=== PATIENT | female | born 1975 | race American Indian/Alaskan Native ===

== ENCOUNTER 2017-07-02 15:12 | Emergency (ER) | payer MEDICAID, OTHER ==
[2017-07-02 15:29] VITALS: BP 135/96
[2017-07-02] MEDS ORDERED: MOTRIN PO ONE (16:19)
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
== END 2017-07-02 17:33 | disposition home or self-care (01) ==
LOC: ED 15:12
DX: S39.012A Strain of muscle, fascia and tendon of lower back, initial encounter (principal); I10 Essential (primary) hypertension; F17.200 Nicotine dependence, unspecified, uncomplicated; V89.2XXA Person injured in unspecified motor-vehicle accident, traffic, initial encounter; Y92.89 Other specified places as the place of occurrence of the external cause; Y99.8 Other external cause status
CPT/HCPCS: 99282

== ENCOUNTER 2018-08-17 12:06 | Emergency (ER) | payer OTHER ==
[2018-08-17] MEDS ORDERED: IBUPROFEN PO ONE (12:49)
[2018-08-17] MEDS ORDERED: NORCO 7.5/325 PO ONE (12:49)
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
[2018-08-19 12:03] VITALS: BP 170/117
== END 2018-08-17 15:01 | disposition home or self-care (01) ==
LOC: ED 12:06
DX: S00.83XA Contusion of other part of head, initial encounter (principal); M54.2 Cervicalgia; I10 Essential (primary) hypertension; F17.200 Nicotine dependence, unspecified, uncomplicated; Y08.89XA Assault by other specified means, initial encounter; Y93.89 Activity, other specified; Y92.89 Other specified places as the place of occurrence of the external cause; Y99.8 Other external cause status
CPT/HCPCS: 70486; 72125

== ENCOUNTER 2019-02-05 17:10 | Emergency (ER) | payer BC ==
[2019-02-05 18:10] LABS: Basophils # (Auto) 0.1 K/mm3 (0.0-0.1); Basophils % (Auto) 0.7 % (0.0-1.8); Eosinophils % (Auto) 0.2 % (0.0-4.3); Hemoglobin 8.9 gm/dl (10.1-14.3); Lymphocytes # (Auto) 2.6 K/mm3 (1.2-5.4); Lymphocytes % (Auto) 30.8 % (13.4-35.0); Mean Corpuscular HGB Conc 32 % (30-34); Monocytes # (Auto) 0.7 K/mm3 (0.0-0.8); Monocytes % (Auto) 7.8 % (0.0-7.3); Platelet Count 314 K/mm3 (140-440); Red Blood Count 4.06 M/mm3 (3.65-5.03); Red Cell Distribution Width 19.3 % (13.2-15.2)
[2019-02-05 18:20] LABS: Alanine Aminotransferase 10 units/L (7-56); Albumin 4.6 g/dL (3.9-5); BUN/Creatinine Ratio 14; Blood Urea Nitrogen 10 mg/dL (7-17); Calcium 9.7 mg/dL (8.4-10.2); Hemolysis Index 0
[2019-02-05 18:28] LABS: Mean Corpuscular Volume 69 fl (79-97)
[2019-02-05 18:38] LABS: Bilirubin,Urine NEG (Negative); Color,Urine Yellow (Yellow)
[2019-02-05 18:39] LABS: Bacteria,Urine 1+ /HPF (Negative); Blood,Urine NEG (Negative); Mucus,Urine FEW /HPF; Urobilinogen,Urine < 2.0 mg/dL (<2.0)
[2019-02-05] MEDS ORDERED: MORPHINE IV ONE (20:33)
[2019-02-05] MEDS ORDERED: ZOFRAN IV ONE (20:33)
--- NOTE | 2019-02-05 20:36 | Emergency Department Report ---
ED Abdominal Pain HPI - General Chief Complaint: Abdominal Pain Stated Complaint: ABD PAIN Time Seen by Provider: 02/05/19 20:30 Source: patient Mode of arrival: Ambulatory Limitations: No Limitations - History of Present Illness Initial Comments: Patient is 43 years old female with history of hypertension, noncompliant with his medication. Patient presented to the ER complaining of abdominal pain, epigastric radiation to the suprapubic area. Patient stated that pain started 5 days ago. Patient denied any nausea or vomiting. No fever or chills. MD Complaint: abdominal pain -: days(s) Location: epigastric Radiation: suprapubic Migration to: no migration Severity: moderate Severity scale (0 -10): 6 Quality: sharp Associated Symptoms: denies other symptoms - Related Data Previous Rx's Medication Instructions Recorded Last Taken Type NIFEdipine XL [Procardia Xl] 90 mg PO QDAY #30 tablet 05/15/16 06/17/16 05:00 Rx oxyCODONE /ACETAMINOPHEN [Percocet 1 tab PO Q6HR PRN #30 tablet 06/17/16 Unknown Rx 5/325] Ibuprofen [Motrin 800 MG tab] 800 mg PO Q8HR PRN #30 tablet 07/14/16 Unknown Rx Cyclobenzaprine [Flexeril] 10 mg PO QHS PRN #5 tablet 07/02/17 Unknown Rx Ibuprofen [Motrin] 600 mg PO Q8H PRN #30 tablet 07/02/17 Unknown Rx HYDROcodone/APAP 5-325 [[place] 1 each PO Q6HR PRN #15 tablet 08/17/18 Unknown Rx 5/325] Ibuprofen [Motrin] 600 mg PO Q8H PRN #20 tablet 08/17/18 Unknown Rx Lisinopril [Zestril] 40 mg PO DAILY #30 tablet 08/17/18 Unknown Rx Allergies Allergy/AdvReac Type Severity Reaction Status Date / Time No Known Allergies Allergy Verified 07/02/17 15:24 ED Review of Systems ROS: Stated complaint: ABD PAIN Other details as noted in HPI Comment: All other systems reviewed and negative Constitutional: denies: chills, fever Respiratory: denies: cough, orthopnea, shortness of breath, SOB with exertion Cardiovascular: denies: chest pain, palpitations Gastrointestinal: abdominal pain. denies: nausea, vomiting Musculoskeletal: denies: back pain ED Past Medical Hx - Past Medical History Previous Medical History?: Yes Hx Hypertension: Yes (since 2010, took meds this morning) Hx Congestive Heart Failure: No Hx Diabetes: No Hx Deep Vein Thrombosis: No Hx Renal Disease: No Hx Sickle Cell Disease: No Hx Seizures: No Hx Asthma: No Hx COPD: No Hx HIV: No - Surgical History Past Surgical History?: Yes Additional Surgical History: Orbital fx repair, Tubaligation reversal - Social History Smoking Status: Current Every Day Smoker Substance Use Type: None - Medications Home Medications: Home Medications Medication Instructions Recorded Confirmed Last Taken Type NIFEdipine XL [Procardia Xl] 90 mg PO QDAY #30 tablet 05/15/16 06/17/16 06/17/16 05:00 Rx oxyCODONE /ACETAMINOPHEN [Percocet 1 tab PO Q6HR PRN #30 tablet 06/17/16 Unknown Rx 5/325] Ibuprofen [Motrin 800 MG tab] 800 mg PO Q8HR PRN #30 tablet 07/14/16 Unknown Rx Cyclobenzaprine [Flexeril] 10 mg PO QHS PRN #5 tablet 07/02/17 Unknown Rx Ibuprofen [Motrin] 600 mg PO Q8H PRN #30 tablet 07/02/17 Unknown Rx HYDROcodone/APAP 5-325 [[place] 1 each PO Q6HR PRN #15 tablet 08/17/18 Unknown Rx 5/325] Ibuprofen [Motrin] 600 mg PO Q8H PRN #20 tablet 08/17/18 Unknown Rx Lisinopril [Zestril] 40 mg PO DAILY #30 tablet 08/17/18 Unknown Rx ED Physical Exam - General Limitations: No Limitations General appearance: alert, in no apparent distress - Head Head exam: Present: atraumatic, normocephalic, normal inspection - Eye Eye exam: Present: normal appearance, PERRL - ENT ENT exam: Present: normal exam, normal orophraynx, mucous membranes moist - Neck Neck exam: Present: normal inspection. Absent: tenderness, meningismus - Respiratory Respiratory exam: Present: normal lung sounds bilaterally - Cardiovascular Cardiovascular Exam: Present: regular rate, normal rhythm, normal heart sounds - GI/Abdominal GI/Abdominal exam: Present: soft, normal bowel sounds. Absent: distended, tenderness, guarding, rebound, rigid, mass, bruit, pulsatile mass, hernia - Extremities Exam Extremities exam: Present: normal inspection, full ROM, normal capillary refill - Back Exam Back exam: Present: normal inspection, full ROM. Absent: CVA tenderness (R), CVA tenderness (L), muscle spasm, paraspinal tenderness, vertebral tenderness - Neurological Exam Neurological exam: Present: alert, oriented X3, CN II-XII intact, normal gait - Skin Skin exam: Present: warm, intact, normal color ED Course Vital Signs 02/05/19 02/05/19 02/05/19 17:26 20:19 20:29 Temperature 97.9 F Pulse Rate 83 Respiratory 18 19 Rate Blood Pressure 169/106 O2 Sat by Pulse 98 100 Oximetry 02/05/19 02/05/19 02/05/19 20:30 20:45 21:00 Temperature Pulse Rate Respiratory Rate Blood Pressure 190/108 190/108 194/117 O2 Sat by Pulse 100 100 100 Oximetry 02/05/19 02/05/19 02/05/19 21:15 21:30 21:53 Temperature Pulse Rate Respiratory Rate Blood Pressure 194/117 197/114 O2 Sat by Pulse 100 100 65 L Oximetry 02/05/19 02/05/19 02/05/19 22:00 22:16 22:44 Temperature Pulse Rate Respiratory Rate Blood Pressure 207/120 207/120 207/120 O2 Sat by Pulse 100 100 75 L Oximetry 02/05/19 22:45 Temperature Pulse Rate Respiratory Rate Blood Pressure 207/120 O2 Sat by Pulse 99 Oximetry ED Medical Decision Making - Lab Data Result diagrams: 02/05/19 17:39 02/05/19 17:39 - Radiology Data Radiology results: report reviewed - Medical Decision Making Patient is 43 years old female with history of hypertension, noncompliant with his medication. Patient presented to the ER complaining of abdominal pain, epigastric radiation to the suprapubic area. Patient stated that pain started 5 days ago. Patient denied any nausea or vomiting. No fever or chills. CT abdomen and pelvis showed a acute pancreatitis. Patient stated that she has been drinking quite bit in the last few days. Patient stated that symptoms improved significantly. She stated that she is not taking any medicine for blood pressure. Patient given clonidine here in the ER. Advised patient to advance diet as tolerated. Patient also advised to return to the ER if symptoms are not improved. Critical care attestation.: If time is entered above; I have spent that time in minutes in the direct care o f this critically ill patient, excluding procedure time. ED Disposition Clinical Impression: Acute pancreatitis, Abdominal pain, Malignant hypertension Disposition: - TO HOME OR SELFCARE Is pt being admited?: No Condition: Stable Instructions: Abdominal Pain (ED), Hypertension (ED), Pancreatitis (ED) Referrals: EFRAIN SAEZ MD [Primary Care Provider] - 3-5 Days
--- NOTE | 2019-02-05 22:51 | Cat Scan Report ---
CT ABDOMEN AND PELVIS WITH CONTRAST HISTORY: Right abdominal pain. COMPARISON: No relevant prior imaging study available. TECHNIQUE: Axial, coronal and sagittal CT imaging of the abdomen and pelvis was performed after inje ction of 100 cc Omnipaque [address] scans at this location are performed using CT dose re duction for ALARA by means of automated exposure control. FINDINGS: LOWER CHEST: No significant abnormality. LIVER: There is a tiny probable cyst located anteriorly along the right hepatic lobe. No additional s ignificant abnormality. BILIARY: No significant abnormality. PANCREAS: The pancreatic head and uncinate process are mildly edematous with surrounding fluid/inflam mation. No additional significant abnormality. SPLEEN: No significant abnormality. ADRENALS: No significant abnormality. KIDNEYS AND URETERS: No significant abnormality. GI TRACT: No significant abnormality of the stomach. There is mild dilatation of the second/third por tion of the duodenum, which may be reactive to the surrounding inflammatory changes noted along the p ancreas. The remainder of the small bowel is unremarkable. No significant abnormality of the colon is seen. Unremarkable appendix. PERITONEUM: No free fluid. No free air. No fluid collection. LYMPH NODES: No significant adenopathy. VASCULATURE: No significant abnormality. URINARY BLADDER: No significant abnormality. REPRODUCTIVE ORGANS: There is a 2 cm follicle in the right ovary. No additional significant abnormali ty is noted. ADDITIONAL FINDINGS: None. SKELETAL SYSTEM: No significant abnormality. IMPRESSION: Probable acute pancreatitis without an associated complication. Please correlate with the clinical fi ndings. Signer Name: Jt Mcdermott MD Signed: 02/05/2019 10:47 PM Workstation Name: [id number]
[2019-02-05] MEDS ORDERED: SUBLIMAZE IV ONE (22:52)
[2019-02-05] MEDS ORDERED: SUBLIMAZE ONE (22:58)
[2019-02-06] MEDS ORDERED: CATAPRES PO ONE (00:06)
[2019-02-06 00:31] VITALS: BP 191/116
== END 2019-02-06 01:33 | disposition home or self-care (01) ==
LOC: ED 17:10
DX: K85.90 Acute pancreatitis without necrosis or infection, unspecified (principal); I10 Essential (primary) hypertension; F17.200 Nicotine dependence, unspecified, uncomplicated; Z98.890 Other specified postprocedural states; Z98.51 Tubal ligation status; Z79.899 Other long term (current) drug therapy
CPT/HCPCS: 36415; 74177; 80053; 81001; 83690; 85025; 96374; 96375; 99284; J2270; J2405; J3010; Q9967

== ENCOUNTER 2019-06-23 18:26 | Emergency (ER) | payer BC ==
--- NOTE | 2019-06-23 19:12 | Emergency Department Report ---
Blank Doc - Documentation Documentation: 43-year-old female that presents with RUQ with n/v. This initial assessment/diagnostic orders/clinical plan/treatment(s) is/are subject to change based on patient's health status, clinical progression and re- assessment by fellow clinical providers in the ED. Further treatment and workup at subsequent clinical providers discretion. Patient/guardians urged not to elope from the ED as their condition may be serious if not clinically assessed and managed. Initial orders include: 1- Patient sent to [facility] for further evaluation and treatment 2- labs 3- UA
[2019-06-23 19:44] LABS: Basophils # (Auto) 0.1 K/mm3 (0.0-0.1); Eosinophils # (Auto) 0.1 K/mm3 (0.0-0.4); Eosinophils % (Auto) 1.3 % (0.0-4.3); Hematocrit 30.8 % (30.3-42.9); Hemoglobin 9.6 gm/dl (10.1-14.3); Lymphocytes # (Auto) 1.8 K/mm3 (1.2-5.4); Lymphocytes % (Auto) 34.3 % (13.4-35.0); Mean Corpuscular HGB Conc 31 % (30-34); Mean Corpuscular Volume 70 fl (79-97); Monocytes # (Auto) 0.4 K/mm3 (0.0-0.8); Monocytes % (Auto) 8.3 % (0.0-7.3); Platelet Count 422 K/mm3 (140-440); Red Blood Count 4.39 M/mm3 (3.65-5.03); Red Cell Distribution Width 18.8 % (13.2-15.2)
[2019-06-23 19:57] LABS: Alanine Aminotransferase 10 units/L (7-56); Albumin 4.5 g/dL (3.9-5); BUN/Creatinine Ratio 19; Blood Urea Nitrogen 13 mg/dL (7-17); Calcium 9.9 mg/dL (8.4-10.2); Hemolysis Index 8
[2019-06-23 20:09] LABS: Bilirubin,Urine NEG (Negative); Blood,Urine NEG (Negative); Color,Urine Yellow (Yellow); Mucus,Urine 1+ /HPF; Protein,Urine <15 mg/dL mg/dL (Negative); Urobilinogen,Urine < 2.0 mg/dL (<2.0)
[2019-06-23] MEDS ORDERED: SODIUM CHLORIDE 0.9% 1000 ML 1,000 ML IV ONE (20:43)
[2019-06-23] MEDS ORDERED: ONDANSETRON 4 MG/2 ML INJ IV ONE (20:43)
[2019-06-23] MEDS ORDERED: KETOROLAC 30 MG/1 ML INJ IV ONE (20:43)
--- NOTE | 2019-06-23 21:08 | Emergency Department Report ---
ED Abdominal Pain HPI - General Chief Complaint: Abdominal Pain Stated Complaint: ABD PAIN Time Seen by Provider: 06/23/19 19:11 Source: patient Mode of arrival: Ambulatory Limitations: No Limitations - History of Present Illness Initial Comments: pt is a 43 y/o aaf who presents for RUQ pain 5/10 x 1 week , pain is described 5/10 aching , constant, with intermittent nausea and vomiting. pt denies fever or chills. There is no constipation or diarrhea. MD Complaint: abdominal pain Onset/Timin -: week(s) Location: RUQ Radiation: RUQ Migration to: RUQ Severity: moderate Severity scale (0 -10): 5 Quality: aching Consistency: constant Improves With: nothing Worsens With: eating Associated Symptoms: nausea, vomiting Treatments Prior to Arrival: other (none ) - Related Data LMP (females 10-50): last week Previous Rx's Medication Instructions Recorded Last Taken Type NIFEdipine XL [Procardia Xl] 90 mg PO QDAY #30 tablet 05/15/16 06/17/16 05:00 Rx oxyCODONE /ACETAMINOPHEN [Percocet 1 tab PO Q6HR PRN #30 tablet 06/17/16 Unknown Rx 5/325] Ibuprofen [Motrin 800 MG tab] 800 mg PO Q8HR PRN #30 tablet 07/14/16 Unknown Rx Cyclobenzaprine [Flexeril] 10 mg PO QHS PRN #5 tablet 07/02/17 Unknown Rx Ibuprofen [Motrin] 600 mg PO Q8H PRN #30 tablet 07/02/17 Unknown Rx HYDROcodone/APAP 5-325 [[place] 1 each PO Q6HR PRN #15 tablet 08/17/18 Unknown Rx 5/325] Ibuprofen [Motrin] 600 mg PO Q8H PRN #20 tablet 08/17/18 Unknown Rx Lisinopril [Zestril] 40 mg PO DAILY #30 tablet 08/17/18 Unknown Rx Ondansetron [Zofran Odt] 4 mg PO Q8HR PRN #14 tab.rapdis 02/06/19 Unknown Rx amLODIPine [Norvasc] 5 mg PO DAILY #30 tab 02/06/19 Unknown Rx traMADoL [Ultram] 50 mg PO Q6HR PRN #14 tablet 02/06/19 Unknown Rx Dicyclomine [Bentyl] 10 mg PO QID PRN #30 capsule 06/23/19 Unknown Rx Naproxen 500 mg PO BID PRN #30 tablet 06/23/19 Unknown Rx Ondansetron [Zofran Odt] 4 mg PO Q8HR PRN 3 Days #12 06/23/19 Unknown Rx tab.rapdis Allergies Allergy/AdvReac Type Severity Reaction Status Date / Time No Known Allergies Allergy Verified 07/02/17 15:24 ED Review of Systems ROS: Stated complaint: ABD PAIN Other details as noted in HPI Constitutional: denies: chills, fever Eyes: denies: eye pain, eye discharge, vision change ENT: denies: ear pain, throat pain Respiratory: denies: cough, shortness of breath, wheezing Cardiovascular: denies: chest pain, palpitations Endocrine: no symptoms reported Gastrointestinal: abdominal pain, nausea, vomiting. denies: diarrhea, constipation, melena Genitourinary: denies: urgency, dysuria, discharge Musculoskeletal: denies: back pain, joint swelling, arthralgia Skin: as per HPI Neurological: denies: headache, weakness, paresthesias Psychiatric: denies: anxiety, depression Hematological/Lymphatic: denies: easy bleeding, easy bruising ED Past Medical Hx - Past Medical History Previous Medical History?: Yes Hx Hypertension: Yes (since 2010, took meds this morning) Hx Congestive Heart Failure: No Hx Diabetes: No Hx Deep Vein Thrombosis: No Hx Renal Disease: No Hx Sickle Cell Disease: No Hx Seizures: No Hx Asthma: No Hx COPD: No Hx HIV: No - Surgical History Past Surgical History?: Yes Additional Surgical History: Orbital fx repair, Tubaligation reversal - Social History Smoking Status: Current Every Day Smoker Substance Use Type: Alcohol - Medications Home Medications: Home Medications Medication Instructions Recorded Confirmed Last Taken Type NIFEdipine XL [Procardia Xl] 90 mg PO QDAY #30 tablet 05/15/16 06/17/16 06/17/16 05:00 Rx oxyCODONE /ACETAMINOPHEN [Percocet 1 tab PO Q6HR PRN #30 tablet 06/17/16 Unknown Rx 5/325] Ibuprofen [Motrin 800 MG tab] 800 mg PO Q8HR PRN #30 tablet 07/14/16 Unknown Rx Cyclobenzaprine [Flexeril] 10 mg PO QHS PRN #5 tablet 07/02/17 Unknown Rx Ibuprofen [Motrin] 600 mg PO Q8H PRN #30 tablet 07/02/17 Unknown Rx HYDROcodone/APAP 5-325 [[place] 1 each PO Q6HR PRN #15 tablet 08/17/18 Unknown Rx 5/325] Ibuprofen [Motrin] 600 mg PO Q8H PRN #20 tablet 08/17/18 Unknown Rx Lisinopril [Zestril] 40 mg PO DAILY #30 tablet 08/17/18 Unknown Rx Ondansetron [Zofran Odt] 4 mg PO Q8HR PRN #14 tab.rapdis 02/06/19 Unknown Rx amLODIPine [Norvasc] 5 mg PO DAILY #30 tab 02/06/19 Unknown Rx traMADoL [Ultram] 50 mg PO Q6HR PRN #14 tablet 02/06/19 Unknown Rx Dicyclomine [Bentyl] 10 mg PO QID PRN #30 capsule 06/23/19 Unknown Rx Naproxen 500 mg PO BID PRN #30 tablet 06/23/19 Unknown Rx Ondansetron [Zofran Odt] 4 mg PO Q8HR PRN 3 Days #12 06/23/19 Unknown Rx tab.rapdis ED Physical Exam - General Limitations: No Limitations (fffffffffffffffffffffffffffffffffffffffffffffffffffffffffffffffffffffffffffffff fffffffffffffffffffffffffffffffffffffffffffff) General appearance: alert, in no apparent distress - Head Head exam: Present: atraumatic, normocephalic - Eye Eye exam: Present: normal appearance, EOMI Pupils: Present: normal accommodation - ENT ENT exam: Present: normal orophraynx, mucous membranes moist - Neck Neck exam: Present: normal inspection, full ROM. Absent: tenderness, lymphadenopathy - Respiratory Respiratory exam: Present: normal lung sounds bilaterally. Absent: respiratory distress, wheezes, chest wall tenderness - Cardiovascular Cardiovascular Exam: Present: regular rate, normal rhythm, normal heart sounds. Absent: systolic murmur, diastolic murmur, rubs, gallop - GI/Abdominal GI/Abdominal exam: Present: soft, tenderness (ruq and epigastric), normal bowel sounds. Absent: distended, guarding, rebound, rigid, bruit, hernia - Rectal Rectal exam: Present: deferred - Extremities Exam Extremities exam: Present: normal inspection, full ROM, normal capillary refill. Absent: tenderness - Back Exam Back exam: Present: normal inspection, full ROM, tenderness. Absent: CVA tenderness (R), CVA tenderness (L), rash noted - Neurological Exam Neurological exam: Present: alert, oriented X3, CN II-XII intact, normal gait, reflexes normal. Absent: motor sensory deficit - Psychiatric Psychiatric exam: Present: normal affect, normal mood - Skin Skin exam: Present: warm, dry, intact, normal color. Absent: rash ED Course Vital Signs 06/23/19 06/23/19 06/23/19 18:28 21:24 21:47 Temperature 98.3 F 97.6 F Pulse Rate 104 H 78 Respiratory 18 18 16 Rate Blood Pressure 165/111 Blood Pressure 195/120 [Right] O2 Sat by Pulse 98 100 Oximetry 06/23/19 22:14 Temperature Pulse Rate 88 Respiratory Rate Blood Pressure 117/84 Blood Pressure [Right] O2 Sat by Pulse Oximetry ED Medical Decision Making - Lab Data Result diagrams: 06/23/19 19:17 06/23/19 19:17 Labs 06/23/19 06/23/19 06/23/19 19:17 19:17 19:17 WBC 5.1 RBC 4.39 Hgb 9.6 L Hct 30.8 MCV 70 L MCH 22 L MCHC 31 RDW 18.8 H Plt Count 422 Lymph % (Auto) 34.3 [place] % (Auto) 8.3 H Eos % (Auto) 1.3 Baso % (Auto) 2.0 H Lymph # 1.8 [place] # 0.4 Eos # 0.1 Baso # 0.1 Seg Neutrophils % 54.1 Seg Neutrophils # 2.8 Sodium 140 Potassium 4.1 Chloride 102.6 Carbon Dioxide 26 Anion Gap 16 BUN 13 Creatinine 0.7 Estimated GFR > 60 BUN/Creatinine Ratio 19 Glucose 86 Calcium 9.9 Total Bilirubin 0.30 AST 22 ALT 10 Alkaline Phosphatase 55 Total Protein 8.4 H Albumin 4.5 Albumin/Globulin Ratio 1.2 Lipase 85 H HCG, Qual Negative Urine Color Urine Turbidity Urine pH Ur Specific [place] Urine Protein Urine Glucose (UA) Urine Ketones Urine Blood Urine Nitrite Urine Bilirubin Urine Urobilinogen Ur Leukocyte Esterase Urine WBC (Auto) Urine RBC (Auto) U Epithel Cells (Auto) Urine Mucus 06/23/19 19:45 WBC RBC Hgb Hct MCV MCH MCHC RDW Plt Count Lymph % (Auto) [place] % (Auto) Eos % (Auto) Baso % (Auto) Lymph # [place] # Eos # Baso # Seg Neutrophils % Seg Neutrophils # Sodium Potassium Chloride Carbon Dioxide Anion Gap BUN Creatinine Estimated GFR BUN/Creatinine Ratio Glucose Calcium Total Bilirubin AST ALT Alkaline Phosphatase Total Protein Albumin Albumin/Globulin Ratio Lipase HCG, Qual Urine Color Yellow Urine Turbidity Clear Urine pH 5.0 Ur Specific [place] 1.026 Urine Protein <15 mg/dl Urine Glucose (UA) Neg Urine Ketones Neg Urine Blood Neg Urine Nitrite Neg Urine Bilirubin Neg Urine Urobilinogen < 2.0 Ur Leukocyte Esterase Neg Urine WBC (Auto) 4.0 Urine RBC (Auto) 2.0 U Epithel Cells (Auto) 1.0 Urine Mucus 1+ - Radiology Data Radiology results: report reviewed, image reviewed Ordering Physician: JOSELYN ALFRED NP Date of Service: 06/23/19 Procedure(s): CT abdomen pelvis w con Accession Number(s): [id number] cc: JOSELYN ALFRED NP CT ABDOMEN AND PELVIS WITH CONTRAST INDICATION / CLINICAL INFORMATION: abd pain RUQ, LUQ. TECHNIQUE: Axial CT images were obtained through the abdomen and pelvis after 100 mL Omnipaque [address] scans at this location are performed using CT dose reduction for ALARA by means of automated exposure control. COMPARISON: CT scan 02/05/2019 FINDINGS: LOWER CHEST: No significant abnormality. LIVER: No significant abnormality. BILIARY SYSTEM: No significant abnormality. PANCREAS: No significant abnormality. SPLEEN: No significant abnormality. ADRENALS: No significant abnormality. KIDNEYS and URETERS: No significant abnormality. STOMACH / BOWEL: No significant abnormality. PERITONEUM: No free fluid. No free air. No fluid collection. LYMPH NODES: No adenopathy. VASCULAR STRUCTURES: No significant abnormality. URINARY BLADDER: No significant abnormality. REPRODUCTIVE ORGANS: No significant abnormality. Metallic clips in the pelvis are suggestive of previous tubal ligation. ADDITIONAL FINDINGS: None. SKELETAL SYSTEM: No significant abnormality. IMPRESSION: 1. No acute abnormality. Signer Name: Candido Aponte MD Signed: 06/23/2019 9:45 PM Workstation Name: [id number] Transcribed By: FREDO Dictated By: Candido Aponte MD Electronically Authenticated By: Candido Aponte MD Signed Date/Time: 06/23/192144 DD/ 34 TD/TT: - Medical Decision Making ct abd and pelvis : normal no mass bleeding or abnormality, labs normal, pain relieved to 07/26 plan dc to home with rx for naproxen, zofran, bentyl. pt will follow up with pcp in 2-3 days. Critical care attestation.: If time is entered above; I have spent that time in minutes in the direct care of this critically ill patient, excluding procedure time. ED Disposition Clinical Impression: Abdominal pain Qualifiers: Abdominal location: right upper quadrant Qualified Code(s): R10.11 - Right upper quadrant pain Disposition: DC-01 TO HOME OR SELFCARE Is pt being admited?: No Does the pt Need Aspirin: No Condition: Stable Instructions: Chronic Hypertension (ED), Abdominal Pain (ED) Prescriptions: Dicyclomine [Bentyl] 10 mg PO QID PRN #30 capsule PRN Reason: abdominal spasm Naproxen 500 mg PO BID PRN #30 tablet PRN Reason: pain Ondansetron [Zofran Odt] 4 mg PO Q8HR PRN 3 Days #12 tab.rapdis PRN Reason: nausea and vomiting Referrals: PRIMARY CAREMD [Primary Care Provider] - 3-5 Days [facility] [Provider Group] - 3-5 Days Forms: Work/School Release Form(ED) Time of Disposition: 00:04
[2019-06-23] MEDS ORDERED: amLODIPine 5 MG TAB PO ONE (21:45)
--- NOTE | 2019-06-23 21:49 | Cat Scan Report ---
CT ABDOMEN AND PELVIS WITH CONTRAST INDICATION / CLINICAL INFORMATION: abd pain RUQ, LUQ. TECHNIQUE: Axial CT images were obtained through the abdomen and pelvis after 100 mL Omnipaque [address] scans at this location are performed using CT dose reduction for ALARA by means of automated exposure control. COMPARISON: CT scan 02/05/2019 FINDINGS: LOWER CHEST: No significant abnormality. LIVER: No significant abnormality. BILIARY SYSTEM: No significant abnormality. PANCREAS: No significant abnormality. SPLEEN: No significant abnormality. ADRENALS: No significant abnormality. KIDNEYS and URETERS: No significant abnormality. STOMACH / BOWEL: No significant abnormality. PERITONEUM: No free fluid. No free air. No fluid collection. LYMPH NODES: No adenopathy. VASCULAR STRUCTURES: No significant abnormality. URINARY BLADDER: No significant abnormality. REPRODUCTIVE ORGANS: No significant abnormality. Metallic clips in the pelvis are suggestive of previ ous tubal ligation. ADDITIONAL FINDINGS: None. SKELETAL SYSTEM: No significant abnormality. IMPRESSION: 1. No acute abnormality. Signer Name: Candido Aponte MD Signed: 06/23/2019 9:45 PM Workstation Name: [id number]
[2019-06-24 02:09] VITALS: BP 146/99
== END 2019-06-24 02:00 | disposition home or self-care (01) ==
LOC: ED 18:26
DX: R10.11 Right upper quadrant pain (principal); R11.2 Nausea with vomiting, unspecified; I10 Essential (primary) hypertension; F17.200 Nicotine dependence, unspecified, uncomplicated; Z98.890 Other specified postprocedural states; Z79.899 Other long term (current) drug therapy
CPT/HCPCS: 36415; 74177; 80053; 81001; 83690; 84703; 85025; 96361; 96374; 96375; 99284; J1885; J2405; J7030; Q9967

== ENCOUNTER 2020-10-25 04:20 | Inpatient (IN) | payer BC, OTHER ==
[2020-10-25] MEDS ORDERED: ASPIRIN 325 MG TAB PO ONE (05:33)
[2020-10-25 06:22] LABS: Hemoglobin 7.5 gm/dl (10.1-14.3); Mean Corpuscular HGB Conc 30 % (30-34); Platelet Count 271 K/mm3 (140-440); Red Blood Count 3.93 M/mm3 (3.65-5.03); Red Cell Distribution Width 19.7 % (13.2-15.2)
[2020-10-25 06:24] LABS: Mean Corpuscular Volume 63 fl (79-97)
[2020-10-25 06:39] LABS: Alanine Aminotransferase 11 units/L (7-56); Albumin 4.5 g/dL (3.9-5); BUN/Creatinine Ratio 17; Blood Urea Nitrogen 17 mg/dL (7-17); Calcium 9.6 mg/dL (8.4-10.2); Hemolysis Index 0
[2020-10-25] MEDS ORDERED: ONDANSETRON 4 MG/2 ML INJ IV ONE (06:52)
[2020-10-25] MEDS ORDERED: MORPHINE 2 MG/1 ML INJ IV ONE ×2 (06:52→09:40)
[2020-10-25 07:16] LABS: Anisocytosis 1+; Hypochromasia 2+; Total Cells Counted 100
[2020-10-25 07:17] LABS: Platelet Estimate Consistent w Auto
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
[2020-10-25 07:28] LABS: INR 0.96 (0.87-1.13); Partial Thromboplastin Time 26.5 Sec. (24.2-36.6)
[2020-10-25 07:34] LABS: Creatine Kinase MB 6.4 ng/mL (0.0-4.0)
--- NOTE | 2020-10-25 07:59 | XRay Report ---
CHEST PA AND LATERAL VIEWS INDICATION: chest, neck and back pain. COMPARISON: None. FINDINGS: Support devices: None. Heart: Within normal limits. Lungs/Pleura: No acute pulmonary or pleural findings. IMPRESSION: 1. No acute findings. Signer Name: Neto Phillips MD Signed: 10/25/2020 7:55 AM Workstation Name: [email or web address]
--- NOTE | 2020-10-25 08:08 | Cat Scan Report ---
CTA CHEST WITH IV CONTRAST INDICATION: CP CONTRAST: Unspecified dosage Omnipaque 300 IV COMPARISON: CT abdomen and pelvis 06/23/2019, chest x-ray tonight Three-plane MIP reconstructions were produced. All CT scans at this location are performed using CT d ose reduction for ALARA by means of automated exposure control. FINDINGS: No significant chest wall or axillary lesions are seen. The left lower thyroid shows a mixe d density 2 cm nodule. No mediastinal or hilar masses are seen. Visualized portions of the upper abdo men show mild fatty infiltration of the liver. No pleural effusions are seen. No obvious endobronchia l lesions are noted. No pneumothorax or pneumomediastinum are seen. Lung henry are clear of nodules, masses, or infiltrates. The aorta shows no aneurysmal dilatation or evidence of dissection. Adequate opacification of the pulmonary arterial system was achieved. I do not see evidence of pulmon divya thromboembolism. IMPRESSION: 1. No acute abnormalities are seen. No evidence of pulmonary thromboembolism. 2. Left thyroid lesion. Recommend follow-up with clinical correlation and ultrasound if this is not a known process. INCIDENTAL THYROID NODULE RECOMMENDATIONS Nonpalpable nodules detected on US or other anatomic imaging studies are termed incidentally discover ed nodules or incidentalomas. Nonpalpable nodules have the same risk of malignancy as palpable nodule s with the same size. Generally, only nodules >1 cm should be evaluated, since they have a greater po tential to be clinically significant cancers. (BONNIE, 2009). Follow up for incidental thyroid nodules <1 cm is not recommended. In patients <35 years with an incidental thyroid nodule detected on CT, MRI, or extrathyroidal ultras ound, dedicated thyroid ultrasound is recommended if the nodule is 1 cm, has no suspicious imaging fe atures, and if the patient has normal life expectancy. In patients 35 years with an incidental thyroid nodule detected on CT, MRI, or extrathyroidal ultraso und, dedicated thyroid ultrasound is recommended if the nodule is 1.5 cm, has no suspicious imaging f eatures, and if the patient has normal life expectancy. Signer Name: Juan Wilkerson MD Signed: 10/25/2020 8:04 AM Workstation Name: [email or web address]
--- NOTE | 2020-10-25 08:15 | Cat Scan Report ---
CT CERVICAL SPINE WITHOUT CONTRAST INDICATION: Neck pain TECHNIQUE: All CT scans at this location are performed using CT dose reduction for ALARA by means of automated exposure control. Axial CT images were obtained through the cervical spine. Sagittal and co berna reformatted images were produced. COMPARISON: None available. Cervical spine findings: Extensive degenerative changes are seen. Disc space narrowing is moderately prominent at C5-6 and C6-7 with mild narrowing at C3-4 and C4-5. Small posterior osteophytes are seen at C5-6 and C6-7 and multiple anterior osteophytes are noted. Mild retrolisthesis at C5-6 probably r elates to the degenerative process. No obvious disc herniation is seen. No fractures are noted. Additional findings: The approximate 2 cm mixed density lesion in the left lobe of the thyroid is not ed as discussed on CTA chest report. IMPRESSION: No significant acute findings. Signer Name: Juan Wilkerson MD Signed: 10/25/2020 8:10 AM Workstation Name: [id number]
[2020-10-25 09:07] LABS: Bacteria,Urine 1+ /HPF (Negative); Bilirubin,Urine NEG (Negative); Blood,Urine SM (Negative); Color,Urine Straw (Yellow); Mucus,Urine FEW /HPF; Protein,Urine <15 mg/dL mg/dL (Negative); Urobilinogen,Urine < 2.0 mg/dL (<2.0)
[2020-10-25 09:40] LABS: Benzodiazepines Screen,Urine Negative; Cannabinoid Screen,Urine Negative; Methadone Screen,Urine Negative; Opiate Screen,Urine Negative
[2020-10-25] MEDS ORDERED: MORPHINE 2 MG/1 ML INJ ONE (09:40)
[2020-10-25 09:53] LABS: Amphetamine Screen,Urine Positive; Cocaine Screen,Urine Positive
[2020-10-25] MEDS ORDERED: SODIUM CHLORIDE 0.9% 1000 ML 1,000 ML IV ONE (10:27)
[2020-10-25] MEDS ORDERED: ONDANSETRON 4 MG/2 ML INJ IV PRN (11:36)
[2020-10-25] MEDS ORDERED: NALOXONE 0.4 MG/1 ML INJ IV PRN (11:36)
[2020-10-25] MEDS ORDERED: MORPHINE 2 MG/1 ML INJ IV PRN (11:36)
[2020-10-25] MEDS ORDERED: ACETAMINOPHEN 325 MG TAB PO PRN (11:36)
[2020-10-25] MEDS ORDERED: HYDROmorphone 1 MG/1 ML INJ IV PRN (11:36)
[2020-10-25] MEDS ORDERED: CYCLOBENZAPRINE 10 MG TAB PO ONE (11:48)
[2020-10-25] MEDS ORDERED: LIDOCAINE 5% 1 EACH PATCH TD SCH (12:00)
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
[2020-10-25] MEDS ORDERED: hydrALAZINE 20 MG/1 ML INJ IV ONE (13:18)
[2020-10-25 13:49] LABS: HCG Qualitative,Urine Negative (Negative)
[2020-10-25] MEDS: SODIUM CHLORIDE 0.9% 1000 ML 1,000 ML IV SCH (19:00)
[2020-10-25] MEDS: oxyCODONE /ACETAMINOPHEN 5-325MG TAB PO PRN (20:56)
[2020-10-25] MEDS: CYCLOBENZAPRINE 10 MG TAB PO SCH (22:09)
[2020-10-26 05:17] LABS: BUN/Creatinine Ratio 13; Blood Urea Nitrogen 10 mg/dL (7-17); Calcium 8.4 mg/dL (8.4-10.2); Hemolysis Index 0; Iron 19 ug/dL (37-170); Total Iron Binding Capacity 458 mcg/dL (250-450)
[2020-10-26] MEDS: SODIUM CHLORIDE 0.9% 1000 ML 1,000 ML IV SCH ×2 (05:44→22:09)
[2020-10-26 08:28] LABS: Hematocrit 22.1 % (30.3-42.9); Hemoglobin 6.8 gm/dl (10.1-14.3); Mean Corpuscular HGB Conc 31 % (30-34); Platelet Count 205 K/mm3 (140-440); Red Blood Count 3.52 M/mm3 (3.65-5.03); Red Cell Distribution Width 19.6 % (13.2-15.2)
[2020-10-26 08:29] LABS: Mean Corpuscular Volume 63 fl (79-97)
[2020-10-26] MEDS: LISINOPRIL 40 MG TAB PO SCH (11:50)
[2020-10-26] MEDS: oxyCODONE /ACETAMINOPHEN 5-325MG TAB PO PRN ×2 (13:05→22:07)
--- NOTE | 2020-10-26 15:30 | Progress Note ---
Assessment and Plan Assessment and plan: 45-year-old -[place] female who presents with acute neck pain in the context of rhabdomyolysis Acute neck pain Acute rhabdomyolysis CT of neck reviewed, no disc herniation noted CK elevated, continue fluids, follow CK Pain medication, morphine Dilaudid, Flexeril Consider lidocaine patch if pain continues Physical therapy consulted Polysubstance abuse Urinalysis reviewed, positive for amphetamines and cocaine Stressed abstinence Hypertension Continue lisinopril IV hydralazine as needed with parameters Microcytic anemia Iron studies pending No signs of bleeding Transfuse if hemoglobin <7.0 CODE STATUS: Full DVT prophylaxis: SCDs, hold heparin Disposition: Continue treatment for mild rhabdo and intractable neck pain, hopefully patient can be discharged within the next 48 hours. History Interval history: 10/26 patient seen and examined, states that her neck pain has decreased somewhat with the pain medication. Tolerating fluids, patient needs to get out of bed and ambulate and move around instead of laying in the bed. Hospitalist Physical - Physical exam Narrative exam: General appearance no acute distress, well-nourished EENT: PERRL, EOM intact, hearing intact, clear oral mucosa, dentition normal Neck: Range of motion, tenderness in right trapezius Respiratory: bilateral: CTA, negative: rales, rhonchi, wheezing Cardiovascular: Regular rate/rhythm, Normal S1 & S2. No gallop, rub Extremities: no ischemia, No edema, normal temperature, normal color, Full ROM Abdominal: soft, non-tender, non-distended, normal bowel sounds Integumentary: Present: clear, warm, dry Psychiatric: appropriate mood/affect, intact judgment & insight Neurologic: CNII-XII intact, moves all extremities - Constitutional Vitals: Temp Pulse Resp BP Pulse Ox 98.2 F 74 18 134/82 100 10/26/20 11:46 10/26/20 11:46 10/26/20 11:46 10/26/20 11:50 10/26/20 11:46 General appearance: Present: no acute distress, well-nourished HEART Score - HEART Score EKG: Non-specific Age: 45-65 Risk factors: No known risk factors Troponin: Troponin T < 0.010 ng/mL (0.00-0.029) 10/25/20 07:07 Troponin: < normal limit - Critical Actions Critical Actions: 0-3 pts:0.9-1.7%risk of adverse cardiac event.Candidate for discharge Results - Labs CBC & Chem 7: 10/26/20 08:03 10/26/20 04:23 Labs: Laboratory Last Values WBC 5.0 K/mm3 (4.5-11.0) 10/26/20 08:03 RBC 3.52 M/mm3 (3.65-5.03) L 10/26/20 08:03 Hgb 6.8 gm/dl (10.1-14.3) L 10/26/20 08:03 Hct 22.1 % (30.3-42.9) L 10/26/20 08:03 MCV 63 fl (79-97) L 10/26/20 08:03 MCH 19 pg (28-32) L 10/26/20 08:03 MCHC 31 % (30-34) 10/26/20 08:03 RDW 19.6 % (13.2-15.2) H 10/26/20 08:03 Plt Count 205 K/mm3 (140-440) 10/26/20 08:03 Add Manual Diff Complete 10/25/20 05:41 Total Counted 100 10/25/20 05:41 Seg Neuts % (Manual) 82.0 % (40.0-70.0) H 10/25/20 05:41 Lymphocytes % (Manual) 14.0 % (13.4-35.0) 10/25/20 05:41 Monocytes % (Manual) 4.0 % (0.0-7.3) 10/25/20 05:41 Nucleated RBC % Not Reportable 10/25/20 05:41 Seg Neutrophils # Man 9.6 K/mm3 (1.8-7.7) H 10/25/20 05:41 Band Neutrophils # 0.0 K/mm3 10/25/20 05:41 Lymphocytes # (Manual) 1.6 K/mm3 (1.2-5.4) 10/25/20 05:41 Abs React Lymphs (Man) 0.0 K/mm3 10/25/20 05:41 Monocytes # (Manual) 0.5 K/mm3 (0.0-0.8) 10/25/20 05:41 Eosinophils # (Manual) 0.0 K/mm3 (0.0-0.4) 10/25/20 05:41 Basophils # (Manual) 0.0 K/mm3 (0.0-0.1) 10/25/20 05:41 Metamyelocytes # 0.0 K/mm3 10/25/20 05:41 Myelocytes # 0.0 K/mm3 10/25/20 05:41 Promyelocytes # 0.0 K/mm3 10/25/20 05:41 Blast Cells # 0.0 K/mm3 10/25/20 05:41 WBC Morphology Not Reportable 10/25/20 05:41 Hypersegmented Neuts Not Reportable 10/25/20 05:41 Hyposegmented Neuts Not Reportable 10/25/20 05:41 Hypogranular Neuts Not Reportable 10/25/20 05:41 Smudge Cells Not Reportable 10/25/20 05:41 Toxic Granulation Not Reportable 10/25/20 05:41 Toxic Vacuolation Not Reportable 10/25/20 05:41 Dohle Bodies Not Reportable 10/25/20 05:41 Pelger-Huet Anomaly Not Reportable 10/25/20 05:41 May Rods Not Reportable 10/25/20 05:41 Platelet Estimate Consistent w auto 10/25/20 05:41 Clumped Platelets Not Reportable 10/25/20 05:41 Plt Clumps, EDTA Not Reportable 10/25/20 05:41 Large Platelets Not Reportable 10/25/20 05:41 Giant Platelets Not Reportable 10/25/20 05:41 Platelet Satelliting Not Reportable 10/25/20 05:41 Plt Morphology Comment Not Reportable 10/25/20 05:41 RBC Morphology Not Reportable 10/25/20 05:41 Dimorphic RBCs Not Reportable 10/25/20 05:41 Polychromasia Not Reportable 10/25/20 05:41 Hypochromasia 2+ 10/25/20 05:41 Poikilocytosis Not Reportable 10/25/20 05:41 Anisocytosis 1+ 10/25/20 05:41 Microcytosis 1+ 10/25/20 05:41 Macrocytosis Not Reportable 10/25/20 05:41 Spherocytes Not Reportable 10/25/20 05:41 Pappenheimer Bodies Not Reportable 10/25/20 05:41 Sickle Cells Not Reportable 10/25/20 05:41 Target Cells Not Reportable 10/25/20 05:41 Tear Drop Cells Not Reportable 10/25/20 05:41 Ovalocytes Not Reportable 10/25/20 05:41 Helmet Cells Not Reportable 10/25/20 05:41 [place] Bodies Not Reportable 10/25/20 05:41 [place] Rings Not Reportable 10/25/20 05:41 [place] Cells Not Reportable 10/25/20 05:41 Bite Cells Not Reportable 10/25/20 05:41 Crenated Cell Not Reportable 10/25/20 05:41 Elliptocytes Not Reportable 10/25/20 05:41 Acanthocytes (Spur) Not Reportable 10/25/20 05:41 Rouleaux Not Reportable 10/25/20 05:41 Hemoglobin C Crystals Not Reportable 10/25/20 05:41 Schistocytes Not Reportable 10/25/20 05:41 Malaria parasites Not Reportable 10/25/20 05:41 Yony Bodies Not Reportable 10/25/20 05:41 Hem Pathologist Commnt No 10/25/20 05:41 PT 12.7 Sec. (12.2-14.9) 10/25/20 07:07 INR 0.96 (0.87-1.13) 10/25/20 07:07 APTT 26.5 Sec. (24.2-36.6) 10/25/20 07:07 Sodium 137 mmol/L (137-145) 10/26/20 04:23 Potassium 3.9 mmol/L (3.6-5.0) 10/26/20 04:23 Chloride 106.4 mmol/L (98-107) 10/26/20 04:23 Carbon Dioxide 23 mmol/L (22-30) 10/26/20 04:23 Anion Gap 12 mmol/L 10/26/20 04:23 BUN 10 mg/dL (7-17) 10/26/20 04:23 Creatinine 0.8 mg/dL (0.6-1.2) 10/26/20 04:23 Estimated GFR > 60 ml/min 10/26/20 04:23 BUN/Creatinine Ratio 13 % 10/26/20 04:23 Glucose 86 mg/dL (65-100) 10/26/20 04:23 Calcium 8.4 mg/dL (8.4-10.2) 10/26/20 04:23 Magnesium 1.90 mg/dL (1.7-2.3) 10/25/20 07:07 Iron 19 ug/dL (37-170) L 10/26/20 04:23 TIBC 458 mcg/dL (250-450) H 10/26/20 04:23 Ferritin 4.9 ng/mL (10.0-200.0) L 10/26/20 04:23 Total Bilirubin < 0.20 mg/dL (0.1-1.2) 10/25/20 05:41 AST 21 units/L (5-40) 10/25/20 05:41 ALT 11 units/L (7-56) 10/25/20 05:41 Alkaline Phosphatase 50 units/L (35-129) 10/25/20 05:41 Total Creatine Kinase 549 units/L (30-135) H 10/26/20 08:03 CK-MB (CK-2) 6.4 ng/mL (0.0-4.0) H 10/25/20 07:07 CK-MB (CK-2) Rel Index 0.8 (0-4) 10/25/20 07:07 Troponin T < 0.010 ng/mL (0.00-0.029) 10/25/20 07:07 NT-Pro-B Natriuret Pep 14.67 pg/mL (0-450) 10/25/20 07:07 Total Protein 7.8 g/dL (6.3-8.2) 10/25/20 05:41 Albumin 4.5 g/dL (3.9-5) 10/25/20 05:41 Albumin/Globulin Ratio 1.4 % 10/25/20 05:41 Urine Color Straw (Yellow) 10/25/20 08:12 Urine Turbidity Clear (Clear) 10/25/20 08:12 Urine pH 5.0 (5.0-7.0) 10/25/20 08:12 Ur Specific [place] 1.025 (1.003-1.030) 10/25/20 08:12 Urine Protein <15 mg/dl mg/dL (Negative) 10/25/20 08:12 Urine Glucose (UA) Neg mg/dL (Negative) 10/25/20 08:12 Urine Ketones Neg mg/dL (Negative) 10/25/20 08:12 Urine Blood Sm (Negative) 10/25/20 08:12 Urine Nitrite Pos (Negative) 10/25/20 08:12 Urine Bilirubin Neg (Negative) 10/25/20 08:12 Urine Urobilinogen < 2.0 mg/dL (<2.0) 10/25/20 08:12 Ur Leukocyte Esterase Neg (Negative) 10/25/20 08:12 Urine WBC (Auto) 2.0 /HPF (0.0-6.0) 10/25/20 08:12 Urine RBC (Auto) 1.0 /HPF (0.0-6.0) 10/25/20 08:12 U Epithel Cells (Auto) 2.0 /HPF (0-13.0) 10/25/20 08:12 Urine Bacteria (Auto) 1+ /HPF (Negative) 10/25/20 08:12 Urine Mucus Few /HPF 10/25/20 08:12 Urine HCG, Qual Negative (Negative) 10/25/20 Unknown Urine Opiates Screen Negative 10/25/20 08:12 Urine Methadone Screen Negative 10/25/20 08:12 Ur Barbiturates Screen Negative 10/25/20 08:12 Ur Phencyclidine Scrn Negative 10/25/20 08:12 Ur Amphetamines Screen Positive 10/25/20 08:12 U Benzodiazepines Scrn Negative 10/25/20 08:12 Urine Cocaine Screen Positive 10/25/20 08:12 U Marijuana (THC) Screen Negative 10/25/20 08:12 Drugs of Abuse Note Disclamer 10/25/20 08:12 Blood Type B POSITIVE 10/25/20 10:36 Antibody Screen Negative 10/25/20 10:36 [place]/IV: Voiding Method Toilet Active Medications - Current Medications Current Medications: Generic Name Dose Route Start Last Admin Trade Name Freq PRN Reason Stop Dose Admin Acetaminophen 650 mg 10/25/20 11:36 Acetaminophen 325 Mg Tab PO Q4H PRN Pain MILD(1-3)/Fever >100.5/RODRIGUEZ Cyclobenzaprine HCl 5 mg 10/25/20 22:00 10/25/20 22:09 Cyclobenzaprine 10 Mg Tab PO 10/28/20 21:59 5 mg HS ELINA Administration Hydromorphone HCl 0.5 mg 10/25/20 11:36 Hydromorphone 1 Mg/1 Ml Inj IV Q4H PRN Pain , Severe (7-10) Sodium Chloride 1,000 mls @ 100 mls/hr 10/25/20 11:45 10/26/20 05:44 Nacl 0.9% 1000 Ml IV 100 mls/hr DIRECT ELINA Administration Lisinopril 40 mg 10/26/20 10:00 10/26/20 11:50 Lisinopril 40 Mg Tab PO 40 mg DAILY ELINA Administration Morphine Sulfate 4 mg 10/25/20 11:36 Morphine 2 Mg/1 Ml Inj IV Q4H PRN Pain, Moderate (4-6) Naloxone HCl 0.1 mg 10/25/20 11:36 Naloxone 0.4 Mg/1 Ml Inj IV Q2MIN PRN Res Rate </= 8 or 02 SAT < 92% Ondansetron HCl 4 mg 10/25/20 11:36 Ondansetron 4 Mg/2 Ml Inj IV Q8H PRN Nausea And Vomiting Oxycodone/Acetaminophen 1 tab 10/25/20 11:36 10/26/20 13:05 Oxycodone /Acetaminophen 5-325mg Tab PO 1 tab Q6H PRN Administration Pain, Moderate (4-6) Sodium Chloride 10 ml 10/25/20 22:00 10/26/20 11:50 Sodium Chloride 0.9% 10 Ml Flush Syringe IV Not Given BID ELINA Sodium Chloride 10 ml 10/25/20 11:36 Sodium Chloride 0.9% 10 Ml Flush Syringe IV PRN PRN LINE FLUSH Nutrition/Malnutrition Assess - Dietary Evaluation Nutrition/Malnutrition Findings: Nutrition Notes Start: 10/26/20 09:57 Freq: Status: Active Protocol: Document 10/26/20 09:57 (Rec: 10/26/20 09:59 [id number]) Nutrition Notes Need for Assessment generated from: investment banking analyst Initial or Follow up Brief Note Other Pertinent Diagnosis neck pain, chest pain, polysubstance abuse, anemia Current Diet Cardiac Subjective/Other Information RN screen for skin risk. Jagdeep score 20. No wounds noted in chart. Likely an error. Nutrition Intervention Revisit per MD consult or patient Sign Off request:
[2020-10-26] MEDS ORDERED: SODIUM CHLORIDE 0.9% 500 ML 500 ML IV NR (15:34)
--- NOTE | 2020-10-26 17:39 | Electrocardiograph Report ---
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
--- NOTE | 2020-10-26 21:13 | Hem/Onc Consultation ---
History of Present Illness - History of Present Illness hematology televisit consult 45yo AA woman with cocaine found on tox screen, eval for chest pain and neck pain' says she was in [place] until yesterday when she awoke with neck pain, chest pain affecting L side denied SOB, vomiting, sweating, abd pain says she has had ice craving for years, worse recently found to have severe microcytic anemia says she has heavy menstrual bleeding found to have high CK doing better afer paiun meds and IVF DATA REVIEWED BELOW Chest CT: no PE seen; 2cm L thyroid mass IMP: severe anemia due to bleeding and iron defic iron defic likely due to chronic heavy menstrual bleeding chest and neck pain could be partly related to iron defic anemia r/o uterine ca PLAN: RBC transfusion IV iron infusions pelvic u/s needs MECHANICAL PROCESS ENGINEER f/u after discharge Previous Rx's Medication Instructions Recorded Last Taken Type NIFEdipine XL [Procardia Xl] 90 mg PO QDAY #30 tablet 05/15/16 06/17/16 05:00 Rx oxyCODONE /ACETAMINOPHEN [Percocet 1 tab PO Q6HR PRN #30 tablet 06/17/16 Unknown Rx 5/325] Ibuprofen [Motrin 800 MG tab] 800 mg PO Q8HR PRN #30 tablet 07/14/16 Unknown Rx Cyclobenzaprine [Flexeril] 10 mg PO QHS PRN #5 tablet 07/02/17 Unknown Rx Ibuprofen [Motrin] 600 mg PO Q8H PRN #30 tablet 07/02/17 Unknown Rx HYDROcodone/APAP 5-325 [[place] 1 each PO Q6HR PRN #15 tablet 08/17/18 Unknown Rx 5/325] Ibuprofen [Motrin] 600 mg PO Q8H PRN #20 tablet 08/17/18 Unknown Rx Lisinopril [Zestril] 40 mg PO DAILY #30 tablet 08/17/18 Unknown Rx Ondansetron [Zofran Odt] 4 mg PO Q8HR PRN #14 tab.rapdis 02/06/19 Unknown Rx amLODIPine [Norvasc] 5 mg PO DAILY #30 tab 02/06/19 Unknown Rx traMADoL [Ultram] 50 mg PO Q6HR PRN #14 tablet 02/06/19 Unknown Rx Dicyclomine [Bentyl] 10 mg PO QID PRN #30 capsule 06/23/19 Unknown Rx Naproxen 500 mg PO BID PRN #30 tablet 06/23/19 Unknown Rx Ondansetron [Zofran Odt] 4 mg PO Q8HR PRN 3 Days #12 06/23/19 Unknown Rx tab.rapdis Active Medications Acetaminophen (Acetaminophen 325 Mg Tab) 650 mg PO Q4H PRN PRN Reason: Pain MILD(1-3)/Fever >100.5/RODRIGUEZ Cyclobenzaprine HCl (Cyclobenzaprine 10 Mg Tab) 5 mg PO HS [facility] Stop: 10/28/20 21:59 Last Admin: 10/25/20 22:09 Dose: 5 mg Documented by: Hydromorphone HCl (Hydromorphone 1 Mg/1 Ml Inj) 0.5 mg IV Q4H PRN PRN Reason: Pain , Severe (7-10) Lisinopril (Lisinopril 40 Mg Tab) 40 mg PO DAILY [facility] Last Admin: 10/26/20 11:50 Dose: 40 mg Documented by: Morphine Sulfate (Morphine 2 Mg/1 Ml Inj) 4 mg IV Q4H PRN PRN Reason: Pain, Moderate (4-6) Naloxone HCl (Naloxone 0.4 Mg/1 Ml Inj) 0.1 mg IV Q2MIN PRN PRN Reason: Res Rate </= 8 or 02 SAT < 92% Ondansetron HCl (Ondansetron 4 Mg/2 Ml Inj) 4 mg IV Q8H PRN PRN Reason: Nausea And Vomiting Oxycodone/Acetaminophen (Oxycodone /Acetaminophen 5-325mg Tab) 1 tab PO Q6H PRN PRN Reason: Pain, Moderate (4-6) Last Admin: 10/26/20 13:05 Dose: 1 tab Documented by: Laboratory Last Values WBC 5.0 K/mm3 (4.5-11.0) 10/26/20 08:03 Hgb 6.8 gm/dl (10.1-14.3) L 10/26/20 08:03 Hct 22.1 % (30.3-42.9) L 10/26/20 08:03 MCV 63 fl (79-97) L 10/26/20 08:03 Plt Count 205 K/mm3 (140-440) 10/26/20 08:03 PT 12.7 Sec. (12.2-14.9) 10/25/20 07:07 INR 0.96 (0.87-1.13) 10/25/20 07:07 APTT 26.5 Sec. (24.2-36.6) 10/25/20 07:07 Iron 19 ug/dL (37-170) L 10/26/20 04:23 TIBC 458 mcg/dL (250-450) H 10/26/20 04:23 Ferritin 4.9 ng/mL (10.0-200.0) L 10/26/20 04:23 Total Creatine Kinase 549 units/L (30-135) H 10/26/20 08:03 Urine Cocaine Screen Positive 10/25/20 08:12 U Marijuana (THC) Screen Negative 10/25/20 08:12 Drugs of Abuse Note Disclamer 10/25/20 08:12 Blood Type B POSITIVE 10/25/20 10:36 Antibody Screen Negative 10/25/20 10:36 Crossmatch See Detail 10/25/20 10:36 Past History Past Medical History: hypertension Past Surgical History: Other (Left overall fracture repair, tubal ligation with reversal and repeat tubal ligation) Social history: other (Smokes a fourth a pack of cigarettes per day for last 25 years, occasional alcohol use, denies any drug use) Family history: other (Diabetes mellitus type 2, hypertension, renal disease) Medications and Allergies Allergies Allergy/AdvReac Type Severity Reaction Status Date / Time No Known Allergies Allergy Verified 10/25/20 06:47 Home Medications Medication Instructions Recorded Confirmed Last Taken Type NIFEdipine XL [Procardia Xl] 90 mg PO QDAY #30 tablet 05/15/16 10/25/20 06/17/16 05:00 Rx oxyCODONE /ACETAMINOPHEN [Percocet 1 tab PO Q6HR PRN #30 tablet 06/17/16 10/25/20 Unknown Rx 5/325] Ibuprofen [Motrin 800 MG tab] 800 mg PO Q8HR PRN #30 tablet 07/14/16 10/25/20 Unknown Rx Cyclobenzaprine [Flexeril] 10 mg PO QHS PRN #5 tablet 07/02/17 10/25/20 Unknown Rx Ibuprofen [Motrin] 600 mg PO Q8H PRN #30 tablet 07/02/17 10/25/20 Unknown Rx HYDROcodone/APAP 5-325 [[place] 1 each PO Q6HR PRN #15 tablet 08/17/18 10/25/20 Unknown Rx 5/325] Ibuprofen [Motrin] 600 mg PO Q8H PRN #20 tablet 08/17/18 10/25/20 Unknown Rx Lisinopril [Zestril] 40 mg PO DAILY #30 tablet 08/17/18 10/25/20 Unknown Rx Ondansetron [Zofran Odt] 4 mg PO Q8HR PRN #14 tab.rapdis 02/06/19 10/25/20 Unknown Rx amLODIPine [Norvasc] 5 mg PO DAILY #30 tab 02/06/19 10/25/20 Unknown Rx traMADoL [Ultram] 50 mg PO Q6HR PRN #14 tablet 02/06/19 10/25/20 Unknown Rx Dicyclomine [Bentyl] 10 mg PO QID PRN #30 capsule 06/23/19 10/25/20 Unknown Rx Naproxen 500 mg PO BID PRN #30 tablet 06/23/19 10/25/20 Unknown Rx Ondansetron [Zofran Odt] 4 mg PO Q8HR PRN 3 Days #12 06/23/19 10/25/20 Unknown Rx tab.rapdis Active Meds: Active Medications Acetaminophen (Acetaminophen 325 Mg Tab) 650 mg PO Q4H PRN PRN Reason: Pain MILD(1-3)/Fever >100.5/RODRIGUEZ Cyclobenzaprine HCl (Cyclobenzaprine 10 Mg Tab) 5 mg PO HS ELINA Stop: 10/28/20 21:59 Last Admin: 10/25/20 22:09 Dose: 5 mg Documented by: Hydromorphone HCl (Hydromorphone 1 Mg/1 Ml Inj) 0.5 mg IV Q4H PRN PRN Reason: Pain , Severe (7-10) Sodium Chloride (Nacl 0.9% 1000 Ml) 1,000 mls @ 100 mls/hr IV DIRECT ELINA Last Admin: 10/26/20 05:44 Dose: 100 mls/hr Documented by: Sodium Chloride (Nacl 0.9% 500 Ml) 500 mls @ 0 mls/hr IV ONCE NR Stop: 10/26/20 23:59 Last Admin: 10/26/20 17:12 Dose: 30 mls/hr Documented by: Lisinopril (Lisinopril 40 Mg Tab) 40 mg PO DAILY [facility] Last Admin: 10/26/20 11:50 Dose: 40 mg Documented by: Morphine Sulfate (Morphine 2 Mg/1 Ml Inj) 4 mg IV Q4H PRN PRN Reason: Pain, Moderate (4-6) Naloxone HCl (Naloxone 0.4 Mg/1 Ml Inj) 0.1 mg IV Q2MIN PRN PRN Reason: Res Rate </= 8 or 02 SAT < 92% Ondansetron HCl (Ondansetron 4 Mg/2 Ml Inj) 4 mg IV Q8H PRN PRN Reason: Nausea And Vomiting Oxycodone/Acetaminophen (Oxycodone /Acetaminophen 5-325mg Tab) 1 tab PO Q6H PRN PRN Reason: Pain, Moderate (4-6) Last Admin: 10/26/20 13:05 Dose: 1 tab Documented by: Sodium Chloride (Sodium Chloride 0.9% 10 Ml Flush Syringe) 10 ml IV BID [facility] Last Admin: 10/26/20 11:50 Dose: Not Given Documented by: Sodium Chloride (Sodium Chloride 0.9% 10 Ml Flush Syringe) 10 ml IV PRN PRN PRN Reason: LINE FLUSH Exam - Constitutional Vitals: Last Vital Signs Temp 98.7 F 10/26/20 18:45 Pulse 74 10/26/20 18:45 Resp 20 10/26/20 18:45 BP 142/84 10/26/20 18:45 Pulse Ox 100 10/26/20 18:45 Results - Labs lab Results: Laboratory Results - last 24 hr 10/25/20 10/26/20 10/26/20 10:36 04:23 04:23 WBC RBC Hgb Hct MCV MCH MCHC RDW Plt Count Sodium 137 Potassium 3.9 Chloride 106.4 Carbon Dioxide 23 Anion Gap 12 BUN 10 Creatinine 0.8 Estimated GFR > 60 BUN/Creatinine Ratio 13 Glucose 86 Calcium 8.4 Iron 19 L TIBC 458 H Ferritin 4.9 L Total Creatine Kinase Blood Type B POSITIVE Antibody Screen Negative Crossmatch See Detail 10/26/20 10/26/20 08:03 08:03 WBC 5.0 RBC 3.52 L Hgb 6.8 L Hct 22.1 L MCV 63 L MCH 19 L MCHC 31 RDW 19.6 H Plt Count 205 Sodium Potassium Chloride Carbon Dioxide Anion Gap BUN Creatinine Estimated GFR BUN/Creatinine Ratio Glucose Calcium Iron TIBC Ferritin Total Creatine Kinase 549 H Blood Type Antibody Screen Crossmatch
[2020-10-26] MEDS: CYCLOBENZAPRINE 10 MG TAB PO SCH (22:07)
[2020-10-27] MEDS ORDERED: SODIUM CHLORIDE 0.9% 500 ML 500 ML IV NR (08:17)
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
[2020-10-27 09:44] VITALS: BP 146/88
[2020-10-27] MEDS ORDERED: SODIUM FERRIC GLUCON/SUCRO 125 MG in SODIUM CHLORIDE 0.9% 100 ML IV SCH (10:00)
[2020-10-27] MEDS: LISINOPRIL 40 MG TAB PO SCH (10:20)
--- NOTE | 2020-10-27 12:32 | Ultrasound Report ---
ULTRASOUND PELVIS COMPLETE INDICATION / CLINICAL INFORMATION: heavy menstrual bleeding. TECHNIQUE: Transabdominal. Duplex Color Doppler used: Yes. COMPARISON: None available FINDINGS: UTERUS: Present. - Appearance (if present): No significant abnormality. - Size in cm (if present): 9.5 x 4.6 x 5.5. - Endometrial Complex (if present): No significant abnormality.. Thickness in cm (if measured) = 1.1 - Mass lesions: None. - Additional findings: There is a linear echogenic focus in the cervix measuring up to 1.3 cm which a ppears to represent a focal calcification. RIGHT ADNEXA: No significant ovarian cyst or mass. Normal color Doppler blood flow. LEFT ADNEXA: No significant ovarian cyst or mass. Normal color Doppler blood flow. URINARY BLADDER: No significant abnormality. FREE FLUID: Trace free fluid in the cul-de-sac appears physiologic. ADDITIONAL FINDINGS: None. IMPRESSION: No significant abnormality. No clear explanation for heavy menstrual bleeding. Signer Name: Ozzy Beebe Jr, MD Signed: 10/27/2020 12:08 PM Workstation Name: [id number]
[2020-10-27] MEDS: oxyCODONE /ACETAMINOPHEN 5-325MG TAB PO PRN (13:37)
[2020-10-27 15:17] LABS: Hematocrit 26.7 % (30.3-42.9)
== END 2020-10-27 16:47 | disposition home or self-care (01) | DRG 558 ==
LOC: ED 04:20 → 3A 11:37 → OBSVTOIN 11:37
PROVIDERS: ADMIT Family Medicine; ATTEND Hospitalist
PROC: 30233N1 Transfusion of Nonautologous Red Blood Cells into Peripheral Vein, Percutaneous Approach (ICD-10-PCS; principal; 2020-10-26)
DX: M62.82 Rhabdomyolysis (principal); D50.0 Iron deficiency anemia secondary to blood loss (chronic); I10 Essential (primary) hypertension; F19.10 Other psychoactive substance abuse, uncomplicated; M48.12 Ankylosing hyperostosis [Forestier], cervical region; F17.210 Nicotine dependence, cigarettes, uncomplicated; Z83.3 Family history of diabetes mellitus; Z82.49 Family history of ischemic heart disease and other diseases of the circulatory system; Z79.899 Other long term (current) drug therapy; N92.0 Excessive and frequent menstruation with regular cycle
CPT/HCPCS: 36415; 71046; 71275; 72125; 76856; 80048; 80053; 80307; 81001; 81025; 82550; 82553; 82728; 83550; 83735; 83880; 84484; 85007; 85018; 85025; 85027; 85610; 85730; 86850; 86900; 86901; 86920; 93005; 96374; 96375; 96376; 99406; G0378; J0360; J2270; J2405; J2916; J7030; J7040; P9016; Q9967